=== PATIENT | female | born 1960 | race Caucasian/White ===

== ENCOUNTER 2016-09-10 17:56 | Emergency (ER) | payer BC ==
[~2016-09-10] VITALS: Ht 165.1 cm; Wt 61.1 kg
[~2016-09-10 17:56] MED LIST: LOSA25TA18 PO; METO25TA56 PO
[2016-09-10 18:02] VITALS: BP 189/105; PULSE 81; TEMP 36.5; O2SAT 99; Ht 165.1 cm; Wt 61.1 kg
[2016-09-10] MEDS ORDERED: XYLOCAINE 1%/SOD BICARB 20 ML VIAL INFIL ONE (18:30)
--- NOTE | 2016-09-10 19:02 | EMERGENCY ROOM VISIT NOTE ---
ED Visit Note First contact with patient: 18:05 CHIEF COMPLAINT: Hand laceration HISTORY OF PRESENT ILLNESS: This 56-year-old female patient presents to the emergency department ambulatory after cutting the left hand while trying to cut an off and caught her just prior to arrival. The bleeding has stopped. Denies weakness or numbness of the hand or fingers. The patient rates the pain as stinging and 7/10. The patient denies any other injuries. The patient's Tetanus shot is up to date. REVIEW OF SYSTEMS: A 6 system review of systems was completed with positives and pertinent negatives listed in the HPI. ALLERGIES: See EMR MEDICATIONS: See med list PMH: Hypertension SOCIAL HISTORY: The patient lives locally with family. PHYSICAL EXAM: Vital Signs: Reviewed Nurse's notes, vital signs stable. GENERAL : This is a 56-year-old female, in no acute distress, well-developed, well- nourished. SKIN: There is a 1 cm long laceration on the palmar aspect of the left hand. The edges gape apart with traction. There is no foreign material in the wound and it looks clean. There is no active bleeding. No deep structures such as tendons, bones, or significant blood vessels are seen in the base of the wound. Normal strength and movement of the fingers and wrist. Capillary refill less than 2 seconds. Normal sensation to light and sharp touch. EMERGENCY DEPARTMENT COURSE: I examined the patient. Verbal consent was obtained to perform the procedure. Using sterile technique the wound was cleansed with Betadine. The area was sterilely draped. 3 ml of 1% buffered lidocaine was used to anesthetize the laceration on the hand. Once the patient was anesthetized, the wound was copiously irrigated under pressure with sterile saline. The wound was explored and was as described above. The laceration was repaired using 3 simple interrupted 5-0 nylon sutures with the wound edges being well approximated. The patient tolerated the procedure well. Hemostasis was achieved. The area was cleaned with sterile saline and dressed with bacitracin ointment and bandage. The patient was discharged home in good condition. DIAGNOSIS: Hand laceration Problem List Medical Problems: (1) Anxiety Status: Chronic (2) HTN (hypertension) Status: Chronic Surgical Problems: (1) History of appendectomy Status: Resolved Current/Historical Medications Scheduled Loratadine (Claritin), 10 MG PO DAILY Montelukast Sod (Montelukast Sodium), 10 MG PO HS Multiple Vitamin (Multivitamin), 1 TAB PO DAILY Scheduled PRN Albuterol Sulfate (Proair Respiclick), 2 PUFFS INH UD PRN for Asthma Symptoms Allergies Coded Allergies: Fluconazole (Verified Allergy, Intermediate, Hives, 09/10/16) Nonoxynol 9 (Verified Allergy, Intermediate, Unknown, 09/10/16) BEE STING (Unverified Allergy, Unknown, anaphylaxis, 06/12/15) Latex (Unverified Allergy, Unknown, rash, 06/12/15) Lisinopril (Unverified Allergy, Unknown, cough, 06/12/15) Sulfa Antibiotics (Unverified Allergy, Unknown, hives, 06/12/15) Pneumococcal Vaccine (Verified Adverse Reaction, Intermediate, Body aches , 09/10/16) Vital Signs Date Time Temp Pulse Resp B/P Pulse Ox O2 Delivery O2 Flow Rate FiO2 09/10/16 18:02 36.5 81 18 189/105 99 Room Air Departure Information Impression Primary Impression: Hand laceration Dispostion Home / Self-Care Condition GOOD Referrals Franko Hardin M.D. (PCP) Patient Instructions My [facility] Additional Instructions You have received 3 sutures on your left hand. These sutures are NOT dissolvable and WILL need to be removed by a health care provider in 8-10 days. You can return to the Emergency Department or contact your Primary Care Provider to have the sutures removed. Proper wound care is essential for adequate wound healing and infection prevention. You can shower and clean the wound with soap and water. Do not scour over the wound, pat dry with a towel. Do not submerse the wound (i.e. bathe or dish wash) until the sutures have been removed. You can use an antibiotic ointment with a dressing over the wound for the next 3-4 days. After this time you may leave the wound dry and open to the air. If crust develops over the wound you can use a Q-tip to apply a 1:1 peroxide:water solution to clean the wound. Look for signs of infection of the wound including: increased pain, swelling, foul discharge, streaking, or increased temperature. If any of these are noticed you should return to the Emergency Department for further assessment and treatment. As with any laceration you may have received nerve damage to the surrounding tissues. This damage may or may not be permanent. You should keep the area covered with sunscreen for the first 6 months to 1 year when at risk for exposure to help minimize scarring. You can also use scar reducing creams or Vitamin E oil to help minimize scarring. For pain control, you can use the following [id number] medicines (if >12 yo): - Regular strength (325mg/tab) Tylenol (acetaminophen) 2 tabs every 4-6 hours as needed. Do not exceed 12 tablets in a 24 hour period. Avoid taking more than 4 grams (4000 mg) of Tylenol per day. This includes any other sources of acetaminophen you may take on a regular basis. - Regular strength (200 mg/tab) Advil (ibuprofen) 1-2 tabs every 4-6 hours as needed. Do not exceed a dose of 3200 mg per day. Return to the emergency department if your symptoms worsen despite treatment course outlined above. Problem Qualifiers Primary Impression: Hand laceration Encounter type: initial encounter Foreign body presence: without foreign body Laterality: left Qualified Codes: S61.412A - Laceration without foreign body of left hand, initial encounter
== END 2016-09-10 19:11 | disposition home or self-care (01) ==
LOC: C.EDB 17:57 → C.EDD 19:11
DX: S61.412A Laceration without foreign body of left hand, initial encounter (principal); W26.0XXA Contact with knife, initial encounter; I10 Essential (primary) hypertension; F41.9 Anxiety disorder, unspecified; Z79.899 Other long term (current) drug therapy

== ENCOUNTER 2016-09-20 15:31 | Emergency (ER) | payer BC ==
[~2016-09-20] VITALS: Ht 165.1 cm; Wt 60.6 kg
[2016-09-20 15:38] VITALS: TEMP 36.7; Ht 165.1 cm; Wt 60.6 kg
[2016-09-20] MEDS ORDERED: LORA-741 PO (15:54)
--- NOTE | 2016-09-20 16:11 | EMERGENCY ROOM VISIT NOTE ---
ED Visit Note First contact with patient: 15:52 CHIEF COMPLAINT: Hand laceration HISTORY OF PRESENT ILLNESS: This 56-year-old female patient presents to the emergency department approximately one hour after removing the sutures which were placed in her left palm 10 days ago. Patient states she has previously removed her own sutures out of her head, so thought removing her sutures from her hand would be without problem. Patient states she is now noticing a gaping opening of the wound, and this concerned that it will no longer heal properly. There has been no bleeding. Denies weakness or numbness of the hand or fingers. The patient rates the pain as stinging and 7/10. The patient denies any other injuries. The patient's Tetanus shot is up to date. REVIEW OF SYSTEMS: A 6 system review of systems was completed with positives and pertinent negatives listed in the HPI. ALLERGIES: Bee sting, lisinopril, fluconazole, latex, pneumococcal vaccine, sulfa MEDICATIONS: Singulair, multivitamin, albuterol, Claritin, lorazepam PMH: Seasonal allergies, asthma, anxiety SOCIAL HISTORY: Lives locally with her . She is an artist, and works with metal. Patient does admit to drinking alcohol regularly, admits to occasional marijuana use, but denies tobacco use. PHYSICAL EXAM: Vital Signs: Reviewed Nurse's notes, vital signs stable. GENERAL : 56-year-old female, in no acute distress, well-developed, well-nourished. SKIN: There is a 1 cm long laceration on the palmar aspect of the left hand. The edges slightly gape apart with traction. There is no foreign material in the wound and it looks clean. There is no active bleeding. No deep structures such as tendons, bones, or significant blood vessels are seen in the base of the wound. Normal strength and movement of the fingers and wrist. Capillary refill less than 2 seconds. Normal sensation to light and sharp touch. EMERGENCY DEPARTMENT COURSE: I examined the patient. Discussion with patient regarding proper wound care at this time. Too late to repeat sutures at this time, however I did offer to revise the wound for her and repeat stitches. Patient declines this. Patient would like to use [id number] liquid Band- Aid, and I feel that this is an appropriate treatment at this time. Discussion with patient regarding elevated blood pressure in the emergency department. She states she is very anxious, and does not like looking at her hand with wound. Patient states she does have history of elevated blood pressure with anxiety in the past and is being followed with her primary care provider regarding this. Patient was discharged home in good condition. DIAGNOSIS: Hand laceration, re-opening after removal of sutures; Elevated blood pressure without a diagnosis of HTN DIFFERENTIAL DIAGNOSIS: Abscess, cellulitis, HTN DISCHARGE INSTRUCTIONS & TREATMENT: For pain control: Ibuprofen(Motrin, Advil) may be used for fever or pain. Use 600mg every six hours as needed. Take with food. Avoid using more than 2400mg in a 24 hour period. Do not use 2400mg per day for more than three consecutive days without physician direction. Prolonged inappropriate use can lead to stomach upset or ulcers. (AND/OR) Acetaminophen(Tylenol) may be used for fever or pain. Use 1000mg every six hours as needed. Avoid using more than 4000mg in a 24 hour period. You may alternate these medications every 3-4 hours for pain relief. Keep the wound clean and dry. You may wash with soap and water, however, prevent scrubbing over the wound. Consider the use of a liquid Band-Aid for protection and to prevent bacteria from entering the wound. I advised against submersion the wound in water. I advised against getting the wound wet at a water park next week, unless the wound has closed and healed completely Follow-up with your primary care provider or in the emergency department for signs of infection including redness, swelling, fever, purulent drainage, body aches, chills. Follow-up with her primary care provider for recheck of blood pressure. It was significantly elevated in the emergency department today, however you reported often your blood pressure is elevated with increased anxiety. Continue to monitor this closely, and follow up in the emergency department for chest pain, dyspnea, headache, confusion, blurry vision, or if blood pressure continues to remain elevated throughout the day. Problem List Medical Problems: (1) Anxiety Status: Chronic (2) HTN (hypertension) Status: Chronic Surgical Problems: (1) History of appendectomy Status: Resolved Current/Historical Medications Scheduled Loratadine (Claritin), 10 MG PO DAILY Lorazepam (Ativan), 0.5 MG PO PRN UD Montelukast Sod (Montelukast Sodium), 10 MG PO HS Multiple Vitamin (Multivitamin), 1 TAB PO DAILY Scheduled PRN Albuterol Sulfate (Proair Respiclick), 2 PUFFS INH UD PRN for Asthma Symptoms Allergies Coded Allergies: Fluconazole (Verified Allergy, Intermediate, Hives, 09/10/16) Nonoxynol 9 (Verified Allergy, Intermediate, Unknown, 09/10/16) BEE STING (Unverified Allergy, Unknown, anaphylaxis, 06/12/15) Latex (Unverified Allergy, Unknown, rash, 06/12/15) Lisinopril (Unverified Allergy, Unknown, cough, 06/12/15) Sulfa Antibiotics (Unverified Allergy, Unknown, hives, 06/12/15) Pneumococcal Vaccine (Verified Adverse Reaction, Intermediate, Body aches , 09/10/16) Vital Signs Date Time Temp Pulse Resp B/P (MAP) Pulse Ox O2 Delivery O2 Flow Rate FiO2 09/20/16 16:42 75 18 182/101 99 09/20/16 16:14 70 18 174/102 99 Room Air 09/20/16 15:38 36.7 75 18 204/121 98 Room Air Departure Information Impression Primary Impression: Encounter for wound re-check Additional Impressions: Hand laceration Elevated blood pressure reading without diagnosis of hypertension Dispostion Home / Self-Care Condition GOOD Referrals Franko Hardin M.D. (PCP) Patient Instructions My [facility] Additional Instructions For pain control: Ibuprofen(Motrin, Advil) may be used for fever or pain. Use 600mg every six hours as needed. Take with food. Avoid using more than 2400mg in a 24 hour period. Do not use 2400mg per day for more than three consecutive days without physician direction. Prolonged inappropriate use can lead to stomach upset or ulcers. (AND/OR) Acetaminophen(Tylenol) may be used for fever or pain. Use 1000mg every six hours as needed. Avoid using more than 4000mg in a 24 hour period. You may alternate these medications every 3-4 hours for pain relief. Keep the wound clean and dry. You may wash with soap and water, however, prevent scrubbing over the wound. Consider the use of a liquid Band-Aid for protection and to prevent bacteria from entering the wound. I advised against submersion the wound in water. I advised against getting the wound wet at a water park next week, unless the wound has closed and healed completely Follow-up with your primary care provider or in the emergency department for signs of infection including redness, swelling, fever, purulent drainage, body aches, chills. Follow-up with her primary care provider for recheck of blood pressure. It was significantly elevated in the emergency department today, however you reported often your blood pressure is elevated with increased anxiety. Continue to monitor this closely, and follow up in the emergency department for chest pain, dyspnea, headache, confusion, blurry vision, or if blood pressure continues to remain elevated throughout the day. Problem Qualifiers Additional Impressions: Hand laceration Encounter type: subsequent encounter Foreign body presence: without foreign body Laterality: left Qualified Codes: S61.412D - Laceration without foreign body of left hand, subsequent encounter
[2016-09-20 16:42] VITALS: BP 182/101; PULSE 75; O2SAT 99
[2016-09-20] MEDS ORDERED: SNG10 PO (18:36)
[2016-09-20] MEDS ORDERED: CLR10 PO (18:36)
[2016-09-20] MEDS ORDERED: MULTTAB58 PO (18:36)
[2016-09-20] MEDS ORDERED: ALBU18002 INH (18:36)
== END 2016-09-20 16:43 | disposition home or self-care (01) ==
LOC: C.EDB 15:32 → C.EDD 16:43
DX: T81.30XA Disruption of wound, unspecified, initial encounter (principal); S61.412A Laceration without foreign body of left hand, initial encounter; X58.XXXA Exposure to other specified factors, initial encounter; R03.0 Elevated blood-pressure reading, without diagnosis of hypertension; I10 Essential (primary) hypertension; F41.9 Anxiety disorder, unspecified; Z98.890 Other specified postprocedural states; Z88.2 Allergy status to sulfonamides; Z88.8 Allergy status to other drugs, medicaments and biological substances; Z91.040 Latex allergy status; Z91.030 Bee allergy status

== ENCOUNTER → 2016-11-29 | Outpatient (CLI) | payer BC ==
[~2016-11-29] MED LIST changes: +ALBU18002 INH; +CLR10 PO; +LORA-741 PO; -LOSA25TA18 PO; -METO25TA56 PO; +MULTTAB58 PO; +SNG10 PO
--- NOTE | 2016-11-29 14:05 | MAMMOGRAPHY REPORT ---
BILATERAL FIRST EVER DIGITAL SCREENING MAMMOGRAM TOMOSYNTHESIS WITH CAD: 11/29/2016 CLINICAL HISTORY: Routine screening. Baseline exam. TECHNIQUE: Breast tomosynthesis in addition to standard 2D mammography was performed. Current study was also evaluated with a Computer Aided Detection (CAD) system. COMPARISON: No prior exams were available for comparison. BREAST COMPOSITION: The tissue of both breasts is heterogeneously dense, which may obscure small mas ses. FINDINGS: No suspicious masses, calcifications, or areas of architectural distortion are noted in ei ther breast. IMPRESSION: ACR BI-RADS CATEGORY 1: NEGATIVE There is no mammographic evidence of malignancy. A 1 year screening mammogram is recommended. The pa tient will receive written notification of the results. Approximately 10% of breast cancers are not detected with mammography. A negative mammographic report should not delay biopsy if a clinically suggestive mass is present. Shefali Oshea M.D. ah/:11/29/2016 07:51:03 Body Technician/Painter: Gurjit GUALLPA)(Ingrid), [facility] letter sent: Normal 1/2 BI-RADS Code: ACR BI-RADS Category 1: Negative
== END | disposition home or self-care (01) ==
LOC: C.MAMM 07:20
PROVIDERS: ATTEND Family Medicine
DX: Z12.31 Encounter for screening mammogram for malignant neoplasm of breast (principal)

== ENCOUNTER 2017-05-27 18:37 | Emergency (ER) | payer BC, OTHER ==
[~2017-05-27] VITALS: Ht 165.1 cm; Wt 60.5 kg
[2017-05-27 18:46] VITALS: Ht 165.1 cm; Wt 60.5 kg
[2017-05-27] MEDS ORDERED: SODIUM CHLORIDE 0.9% 500ML 500 ML IV STA (19:56)
[2017-05-27] MEDS ORDERED: OPTIRAY 320 IV PRN (20:00)
--- NOTE | 2017-05-27 20:14 | EMERGENCY ROOM VISIT NOTE ---
History Report prepared by Francis: Bashir Chavez Under the Supervision of: Dr. Linda Menjivar D.O. First contact with patient: 19:27 Chief Complaint: CHEST PAIN Stated Complaint: CHEST PAIN Nursing Triage Summary: while seated pt developed chest pain at 1700hours legs became weak now both arms are tingling pt took a bp pill and ativan with some relief of chest pain denies short of breath nausea History of Present Illness The patient is a 56 year old female who presents to the Emergency Room with complaints of intermittent chest tightness beginning a few hours ago. The patient states she has been experiencing vision changes intermittently all week and a depressed affect for the past three days. She reports she developed chest pain about three hours ago and thought it was her anxiety. The patient notes she took her blood pressure, and it was 163/107. She states she takes blood pressure medication when she feels her blood pressure rising, but she ran out of her current medication, so she took a two year old Losartan. The patient reports her walking became unsteady, and she developed a headache. She states she then took a Lorazepam because the blood pressure medication did not work. She notes she typically does not get headaches. The patient states her unsteadiness then spread to her elbows. She reports she had a sip of her 's yesy, and she was not able to eat anything. The patient notes she has a history of anxiety and asthma, and she has not had an event like this in two years. She states it does not feel like an asthma attack because she experienced tightness. The patient reports her episodes started after her mother , and she had to take care of her sister. 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 The patient states she had a normal stress test a few years ago, and she started taking her daily vitamins and Claritin a few days ago. She denies her pain radiating to her arms, a history of an NV or heart disease, trouble urinating, trouble moving her bowels, and a history of smoking. The patient notes her blood pressure is in the 140s when stressed and 127 without stress. Patient states currently feels improved and believe that the medication she took at home with for her anxiety and blood pressure have elevated her symptoms. Source of History: patient Onset: a few hours ago Position: chest Quality: other (tightness) Timing: intermittent Associated Symptoms: + headache, + back pain (upper) Note: Associated symptoms: vision changes, depressed affect, high blood pressure, unsteadiness to her legs and elbow Denies: pain radiating to her arms, trouble urinating, trouble moving her bowels Review of Systems See HPI for pertinent positives & negatives. A total of 10 systems reviewed and were otherwise negative. Past Medical & Surgical Medical Problems: (1) Anxiety (2) Asthma (3) HTN (hypertension) Surgical Problems: (1) History of appendectomy Family History FHx: cancer Heart disease Hypertension Lung disease Social History Smoking Status: Never Smoker Smokeless Tobacco Use: No Alcohol Use: occasionally Marital Status: Housing Status: lives with significant other Occupation Status: employed Current/Historical Medications Scheduled Loratadine (Claritin), 10 MG PO DAILY Lorazepam (Ativan), 0.5 MG PO PRN UD Losartan Potassium (Cozaar), 25 MG PO DAILY Montelukast Sod (Montelukast Sodium), 10 MG PO HS Multiple Vitamin (Multivitamin), 1 TAB PO DAILY Probiotic Product (Probiotic), 1 TAB PO DAILY Scheduled PRN Albuterol Sulfate (Proair Respiclick), 2 PUFFS INH UD PRN for Asthma Symptoms Allergies Coded Allergies: Fluconazole (Verified Allergy, Intermediate, Hives, 05/27/17) Nonoxynol 9 (Verified Allergy, Intermediate, Unknown, 05/27/17) BEE STING (Unverified Allergy, Unknown, anaphylaxis, 05/27/17) Latex (Unverified Allergy, Unknown, rash, 05/27/17) Lisinopril (Unverified Allergy, Unknown, cough, 05/27/17) Sulfa Antibiotics (Unverified Allergy, Unknown, hives, 05/27/17) Pneumococcal Vaccine (Verified Adverse Reaction, Intermediate, Body aches , 05/27/17) Physical Exam Vital Signs Date Time Temp Pulse Resp B/P (MAP) Pulse Ox O2 Delivery O2 Flow Rate FiO2 05/27/17 21:19 36.7 73 18 161/91 98 Room Air 05/27/17 18:46 36.7 68 20 209/105 99 Room Air Physical Exam GENERAL: alert, well appearing, well nourished, no distress, non-toxic EYE EXAM: normal conjunctiva, PERRL and EOM's grossly intact OROPHARYNX: no exudate, no erythema, lips, buccal mucosa, and tongue normal and mucous membranes are moist NECK: supple, no nuchal rigidity, no adenopathy, non-tender LUNGS: Clear to auscultation. Normal chest wall mechanics. No wheezes, rhonchi, or rales. HEART: no murmurs, S1 normal and S2 normal CHEST: No reproducible chest wall tenderness upon palpation. ABDOMEN: abdomen soft, non-tender, normo-active bowel sounds, no masses, no rebound or guarding. BACK: Back is symmetrical on inspection and there is no deformity, no midline tenderness, no CVA tenderness. SKIN: no rashes and no bruising UPPER EXTREMITIES: upper extremities are grossly normal. LOWER EXTREMITIES: No pitting edema. NEURO EXAM: Normal sensorium, cranial nerves II-XII intact, normal speech, no weakness of arms, no weakness of legs, no ataxia, no facial droop, inability with a steady gait. Medical Decision & Procedures ER Provider Diagnostic Interpretation: Radiology results have been interpreted by the radiologist and reviewed by me. ANGIOGRAPHY HEAD COMBO CLINICAL HISTORY: 56 years-old Female presents with acute headache COMPARISON STUDY: CT head 07/01/2015 TECHNIQUE: Unenhanced axial CT scan of the brain is performed. Subsequently, following the IV administration of 88 cc of Optiray 320, CT angiogram of the brain was performed from the skull base to the vertex. Images are reviewed in the axial, sagittal, and coronal planes. 3-D MIPS images are created and assessed. IV contrast was administered without complication. A dose lowering technique was utilized adhering to the principles of ALARA. CT DOSE: 635.40 mGy.cm FINDINGS: CT BRAIN: There is no acute intracranial hemorrhage, midline shift, hydrocephalus, intracranial mass, territorial ischemia or abnormal extra-axial collections. No abnormal intra-axial or extra-axial enhancement. Senescent calcifications of the lentiform nuclei. Mastoid air cells and middle ear cavities are clear. No calvarial fracture. Paranasal sinuses are clear. Note is made of a metopic suture. CT ANGIOGRAM OF THE BRAIN: The imaged bilateral internal carotid arteries are patent. Mild atherosclerotic plaquing involves the clinoid portions of the internal carotid arteries bilaterally. The bilateral anterior and middle cerebral arteries are also patent. The vertebrobasilar system and posterior cerebral arteries are widely patent. There is no aneurysm, high-grade stenosis, or proximal branch occlusion identified. Dural sinuses appear patent. IMPRESSION: 1. No acute intracranial abnormality identified. 2. Unremarkable CTA of the head without aneurysm, dissection, high-grade stenosis or proximal branch occlusion. The above report was generated using voice recognition software. It may contain grammatical, syntax or spelling errors. Electronically signed by: Lux Estrella M.D. 05/27/2017 9:41 PM Dictated Date/Time: 05/27/2017 9:35 PM CHEST ONE VIEW PORTABLE HISTORY: 56 years-old Female chest pain acute atypical chest pain COMPARISON: Chest radiograph 11/11/2015 TECHNIQUE: Portable AP view of the chest FINDINGS: Cardiomediastinal and hilar silhouettes are within normal limits. No pneumothorax, pleural effusion, focal airspace consolidation or overt pulmonary edema. Bones of the chest appear grossly intact. IMPRESSION: No acute process. The above report was generated using voice recognition software. It may contain grammatical, syntax or spelling errors. Electronically signed by: Lux Estrella M.D. 05/27/2017 8:39 PM Dictated Date/Time: 05/27/2017 8:39 PM Laboratory Results 05/27/17 20:10 Red Blood Count 4.36, Mean Corpuscular Volume 89.7, Mean Corpuscular Hemoglobin 31.4, Mean Corpuscular Hemoglobin Concent 35.0, Mean Platelet Volume 9.2, Neutrophils (%) (Auto) 51.7, Lymphocytes (%) (Auto) 38.7, Monocytes (%) (Auto) 7.0, Eosinophils (%) (Auto) 2.0, Basophils (%) (Auto) 0.3, Neutrophils # (Auto) 3.38, Lymphocytes # (Auto) 2.53, Monocytes # (Auto) 0.46, Eosinophils # (Auto) 0.13, Basophils # (Auto) 0.02 05/27/17 20:10 Test 05/27/17 20:10 White Blood Count 6.54 K/uL (4.8-10.8) Red Blood Count 4.36 M/uL (4.2-5.4) Hemoglobin 13.7 g/dL (12.0-16.0) Hematocrit 39.1 % (37-47) Mean Corpuscular Volume 89.7 fL (80-100) Mean Corpuscular Hemoglobin 31.4 pg (25-34) Mean Corpuscular Hemoglobin Concent 35.0 g/dl (32-36) Platelet Count 191 K/uL (130-400) Mean Platelet Volume 9.2 fL (7.4-10.4) Neutrophils (%) (Auto) 51.7 % Lymphocytes (%) (Auto) 38.7 % Monocytes (%) (Auto) 7.0 % Eosinophils (%) (Auto) 2.0 % Basophils (%) (Auto) 0.3 % Neutrophils # (Auto) 3.38 K/uL (1.4-6.5) Lymphocytes # (Auto) 2.53 K/uL (1.2-3.4) Monocytes # (Auto) 0.46 K/uL (0.11-0.59) Eosinophils # (Auto) 0.13 K/uL (0-0.5) Basophils # (Auto) 0.02 K/uL (0-0.2) RDW Standard Deviation 42.3 fL (36.4-46.3) RDW Coefficient of Variation 13.0 % (11.5-14.5) Immature Granulocyte % (Auto) 0.3 % Immature Granulocyte # (Auto) 0.02 K/uL (0.00-0.02) Prothrombin Time 10.6 SECONDS (9.0-12.0) Prothromb Time International Ratio 1.0 (0.9-1.1) Anion Gap 10.0 mmol/L (3-11) Est Creatinine Clear Calc Drug Dose 68.1 ml/min Estimated GFR () 90.0 Estimated GFR (Non- 77.7 BUN/Creatinine Ratio 14.2 (10-20) Calcium Level 9.6 mg/dl (8.5-10.1) Magnesium Level 2.1 mg/dl (1.8-2.4) Total Bilirubin 0.4 mg/dl (0.2-1) Aspartate Amino Transf (AST/SGOT) 30 U/L (15-37) Alanine Aminotransferase (ALT/SGPT) 27 U/L (12-78) Alkaline Phosphatase 64 U/L (45-117) Troponin I < 0.015 ng/ml (0-0.045) Total Protein 8.8 gm/dl (6.4-8.2) Albumin 4.0 gm/dl (3.4-5.0) Globulin 4.8 gm/dl (2.5-4.0) Albumin/Globulin Ratio 0.8 (0.9-2) Thyroid Stimulating Hormone (TSH) 9.090 uIu/ml (0.300-4.500) Human Chorionic Gonadotropin, Qual NEG (NEG) Lyme Disease IgG Antibody NEG (NEG) Lyme Disease IgM Antibody NEG (NEG) Laboratory results per my review. Medications Administered Medications (Trade) Dose Ordered Sig/Blanca Route Start Time Stop Time Status Last Admin Dose Admin Sodium Chloride 500 ml @ 999 mls/hr Q31M STAT IV 05/27/17 19:56 05/27/17 20:26 DC 05/27/17 19:56 999 MLS/HR ECG Indication: chest pain Rate (beats per minute): 66 Rhythm: sinus rhythm Findings: no acute ischemic change, no ectopy, other (Normal axis. Normal intervals. Low voltage.) Comparison ECG Date: no prior available Change: EKG: Patient's electrocardiogram per my interpretation. ED Course 1939: The patient was evaluated in room C05. A complete history and physical exam was performed. 1955: Ordered Sodium Chloride 500 ml @ 999 mls/hr IV 2150: Upon reevaluation, the patient is feeling better. Her blood pressure improved, and she is ready to go home. I discussed the findings and the treatment plan with the patient. She verbalizes agreement and understanding. 2217: The patient was discharged home. Medical Decision Differential diagnoses includes but is not limited to acute coronary syndrome, myocardial infarction, pericarditis, pulmonary embolus, aortic dissection, pneumonia, pneumothorax, musculoskeletal, shingles, esophageal. Patient well-appearing here despite complaints, no focal neural deficits. Troponin negative after greater than 6 hours of symptoms. Patient's symptoms resolved with her treatments at home prior to arrival. Discussed with her recheck of her blood pressure and possibility of underlying essential hypertension as there is family history of such. Likely patient's anxiety does contribute to her hypertension. Hypertension improved in the emergency room without any additional medications being needed, no evidence of hypertensive urgency/emergency. Patient's heart score 2 and I feel patient very low risk. No symptoms to suggest CVA, increased ICP, or other [employer] pathology. Doubt occult infectious etiology. Doubt dissection, no other risk factors for vascular disease. Patient monitored here no dysrhythmias noted on telemetry. Discussed with patient follow-up with family doctor, periodic use of anxiolytics , adequate hydration and avoidance of excessive salt in diet given blood pressure readings. Discussed with patient symptoms to watch and return for, she verbalized understanding was agreeable with plan. Patient advised she should have her family doctor recheck her thyroid number as it was slightly abnormal here. Patient with no evidence of thyroid storm. Medication Reconcilliation Current Medication List: was personally reviewed by me Blood Pressure Screening Patient's blood pressure: Elevated blood pressure Blood pressure disposition: Referred to PCP Impression Primary Impression: Chest pain Additional Impressions: Headache Anxiety Hypertension Abnormal TSH Scribe Attestation The scribe's documentation has been prepared under my direction and personally reviewed by me in its entirety. I confirm that the note above accurately reflects all work, treatment, procedures, and medical decision making performed by me. Departure Information Dispostion Home / Self-Care Referrals Franko Hardin M.D. (PCP) Forms Call Back Authorization, HOME CARE DOCUMENTATION FORM, IMPORTANT VISIT INFORMATION Patient Instructions ED Chest Pain Atypical Unkn Cause, Headaches Self Care, Hypertension Dc, [facility] Additional Instructions Please follow up with your family doctor to recheck your blood pressure as well as recheck additional thyroid numbers. Your TSH here was slightly abnormal at 9. Please make sure you're drinking enough water, and avoid any additional salt in your diet as that can contribute to high blood pressure. Given your family history, if your blood pressure is persistently high, your family doctor may decide to start you on a blood pressure medication on a daily basis. If you develop any recurrent chest pain or pressure, develop trouble breathing, dizziness, headaches, numbness or tingling, feels though you're going to pass out, trouble speaking, trouble walking, or you've any other new concerns, please return the emergency room. Problem Qualifiers Primary Impression: Chest pain Chest pain type: unspecified Qualified Codes: R07.9 - Chest pain, unspecified Additional Impressions: Headache Headache type: unspecified Headache chronicity pattern: unspecified pattern Intractability: not intractable Qualified Codes: R51 - Headache Hypertension Hypertension type: unspecified Qualified Codes: I10 - Essential (primary) hypertension
[2017-05-27 20:23] LABS: BASO % 0.3 %; BASO ABS # 0.02 K/uL (0-0.2); EOS ABS # 0.13 K/uL (0-0.5); HEMATOCRIT 39.1 % (37-47); HEMOGLOBIN 13.7 g/dL (12.0-16.0); IG# 0.02 K/uL (0.00-0.02); LYMPH % 38.7 %; LYMPH ABS # 2.53 K/uL (1.2-3.4); MEAN CELL VOLUME 89.7 fL (80-100); MEAN CORPUSCULAR HEMOGLOBIN 31.4 pg (25-34); MEAN PLATELET VOLUME 9.2 fL (7.4-10.4); MONO ABS # 0.46 K/uL (0.11-0.59); NEUT % 51.7 %; NEUT ABS # 3.38 K/uL (1.4-6.5); PLATELET COUNT 191 K/uL (130-400); RED CELL DISTRIBUTION WIDTH SD 42.3 fL (36.4-46.3); WHITE BLOOD COUNT 6.54 K/uL (4.8-10.8)
[2017-05-27 20:39] LABS: ALT/SGPT 27 U/L (12-78); AST/SGOT 30 U/L (15-37); BLOOD UREA NITROGEN 12 mg/dl (7-18); CALCIUM 9.6 mg/dl (8.5-10.1); CARBON DIOXIDE 26 mmol/L (21-32); CREATININE 0.85 mg/dl (0.60-1.20); GLUCOSE 88 mg/dl (70-99); POTASSIUM 3.7 mmol/L (3.5-5.1); SODIUM 130 mmol/L (136-145)
--- NOTE | 2017-05-27 20:41 | DIAGNOSTIC IMAGING REPORT ---
CHEST ONE VIEW PORTABLE HISTORY: 56 years-old Female chest pain acute atypical chest pain COMPARISON: Chest radiograph 11/11/2015 TECHNIQUE: Portable AP view of the chest FINDINGS: Cardiomediastinal and hilar silhouettes are within normal limits. No pneumothorax, pleural effusion, focal airspace consolidation or overt pulmonary edema. Bones of the chest appear grossly intact. IMPRESSION: No acute process. The above report was generated using voice recognition software. It may contain grammatical, syntax or spelling errors. Electronically signed by: Lux Estrella M.D. 05/27/2017 8:39 PM Dictated Date/Time: 05/27/2017 8:39 PM
[2017-05-27 20:50] LABS: ALKALINE PHOSPHATASE 64 U/L (45-117); TOTAL PROTEIN 8.8 gm/dl (6.4-8.2)
[2017-05-27] MEDS ORDERED: LOSA1TAB PO (21:00)
[2017-05-27] MEDS ORDERED: PROB1TAB16 PO (21:02)
[2017-05-27 21:19] VITALS: BP 161/91; PULSE 73; TEMP 36.7; O2SAT 98
--- NOTE | 2017-05-27 21:42 | DIAGNOSTIC IMAGING REPORT ---
ANGIOGRAPHY HEAD COMBO CLINICAL HISTORY: 56 years-old Female presents with acute headache COMPARISON STUDY: CT head 07/01/2015 TECHNIQUE: Unenhanced axial CT scan of the brain is performed. Subsequently, following the IV administration of 88 cc of Optiray 320, CT angiogram of the brain was performed from the skull base to the vertex. Images are reviewed in the axial, sagittal, and coronal planes. 3-D MIPS images are created and assessed. IV contrast was administered without complication. A dose lowering technique was utilized adhering to the principles of ALARA. CT DOSE: 635.40 mGy.cm FINDINGS: CT BRAIN: There is no acute intracranial hemorrhage, midline shift, hydrocephalus, intracranial mass, territorial ischemia or abnormal extra-axial collections. No abnormal intra-axial or extra-axial enhancement. Senescent calcifications of the lentiform nuclei. Mastoid air cells and middle ear cavities are clear. No calvarial fracture. Paranasal sinuses are clear. Note is made of a metopic suture. CT ANGIOGRAM OF THE BRAIN: The imaged bilateral internal carotid arteries are patent. Mild atherosclerotic plaquing involves the clinoid portions of the internal carotid arteries bilaterally. The bilateral anterior and middle cerebral arteries are also patent. The vertebrobasilar system and posterior cerebral arteries are widely patent. There is no aneurysm, high-grade stenosis, or proximal branch occlusion identified. Dural sinuses appear patent. IMPRESSION: 1. No acute intracranial abnormality identified. 2. Unremarkable CTA of the head without aneurysm, dissection, high-grade stenosis or proximal branch occlusion. The above report was generated using voice recognition software. It may contain grammatical, syntax or spelling errors. Electronically signed by: Lux Estrella M.D. 05/27/2017 9:41 PM Dictated Date/Time: 05/27/2017 9:35 PM
== END 2017-05-27 22:24 | disposition home or self-care (01) ==
LOC: C.EDB 18:38 → C.EDC 22:24
DX: R07.9 Chest pain, unspecified (principal); R51 Headache; I10 Essential (primary) hypertension; F41.9 Anxiety disorder, unspecified; R94.6 Abnormal results of thyroid function studies; Z79.899 Other long term (current) drug therapy; Z91.030 Bee allergy status; Z88.8 Allergy status to other drugs, medicaments and biological substances

== ENCOUNTER → 2017-07-25 | Outpatient (CLI) | payer OTHER ==
[~2017-07-25] MED LIST changes: +LOSA1TAB PO; +PROB1TAB16 PO
--- NOTE | 2017-07-25 08:55 | DIAGNOSTIC IMAGING REPORT ---
ULTRASOUND OF THE PELVIS CLINICAL HISTORY: Vaginal bleeding. COMPARISON STUDY: No priors. TECHNIQUE: Real-time, grayscale, and color flow sonography of the pelvis is performed both transabdominally and endovaginally. Images are reviewed in the transverse and longitudinal planes. FINDINGS: Uterus: The uterus is normal in size and mildly heterogeneous in echotexture, measuring 8.4 x 4.1 x 4.6 cm. Small intramural fibroids measure up to 1.7 cm. Nabothian cysts are noted in the cervix. Endometrium: The endometrium is normal in appearance, and the endometrial stripe is normal in thickness measuring up to 0.8 cm. Ovaries: The right ovary was not visualized. The left ovary is normal in appearance and measures 1.9 x 1.8 x 1.5 cm. Normal Doppler waveforms are shown within the left ovary. Pelvis: There is no free fluid in the cul-de-sac. No concerning adnexal lesion is seen. IMPRESSION: 1. Small uterine fibroids are identified. 2. The endometrial stripe measures up to 8 mm in thickness. 3. The left ovary is normal in appearance. 4. The right ovary was not visualized. Electronically signed by: Danilo Salomon M.D. 07/25/2017 8:54 AM Dictated Date/Time: 07/25/2017 8:52 AM
== END | disposition home or self-care (01) ==
LOC: C.ULTR 07:46
PROVIDERS: ATTEND Family Medicine
DX: N93.9 Abnormal uterine and vaginal bleeding, unspecified (principal)

== ENCOUNTER → 2017-07-25 | Outpatient (CLI) | payer OTHER | END | disposition home or self-care (01) | LOC: C.PATHSPEC 17:52 | PROVIDERS: ATTEND Obstetrics & Gynecology | DX: N93.8 Other specified abnormal uterine and vaginal bleeding (principal) ==

== ENCOUNTER 2020-09-26 15:02 | Inpatient (IN) ==
--- NOTE | 2020-09-26 16:07 | Emergency Department Note ---
Impression & Plan Atypical chest pain, Alcohol abuse ED Provider Note NAME: OFELIA PAIGE AGE: 60 SEX: F : 1960 ARRIVES VIA: Walk-In INFORMANT: Patient, ED PROVIDER(S): Gilles Louis MD Chief Complaint: Chest pain HPI: Patient does present with concern for chest pain. Patient describes it as a left-sided pressure like feeling like it was "three 5 pound bags of sugar on her chest." The patient states that this occurred while scrubbing the kitchen today. The patient denies any nausea or vomiting. Patient does have a history of alcohol use approximately 6 pack a day for 20 years on and off. Patient does have family history of heart attack in father in early 60s. Patient denies shortness of breath. She has had mild cough. The patient patient is vaccinated for Covid. 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 Patient denies any fevers or chills. Patient denies lower extremity swelling history of DVT or PE. The patient is no history of surgeries or procedures ROS: See HPI for pertinent positives and negatives. A total of 10 systems were reviewed and otherwise negative. Past medical history: See below Surgical history: See below Social history: See below Physical Exam: GENERAL: Wearing glasses and a mask NAD, non-toxic. EYE EXAM: Normal conjunctiva. PERRL, no anisocoria and EOM's grossly intact w/o pain. NECK: Supple, no nuchal rigidity, no adenopathy, non-tender. No signs of meningismus. LUNGS: Clear to auscultation. Normal chest wall mechanics. HEART: NSR, no MRG. ABDOMEN: Abdomen soft, non-tender, normo-active bowel sounds, no masses, no rebound or guarding. BACK: No CVA TTP. SKIN: No rashes and no bruising. UPPER EXTREMITIES: Upper extremities are grossly normal. LOWER EXTREMITIES: Grossly normal, no edema. Negative Homans' sign bilaterally. NEURO EXAM: A&O x3, cranial nerves II-XII grossly intact, normal speech, moves all 4 extremities on command w/o issue. Differential diagnoses: Cardiac ischemia, aortic dissection, pulmonary embolism, pneumothorax, pneumonia, pericarditis, myocarditis, esophageal rupture, GERD, cholecystitis, pancreatitis, musculoskeletal, as well as other pathologies. Course: Patient was seen and evaluated the bedside. Full history physical exam was performed. EKG interpreted by me Normal sinus rhythm, rate of 75, prolonged QT, normal axis, no ST changes or T WI. Imaging Studies: See below Cardiac monitoring: An order was placed for continuous cardiac monitoring. The monitor shows a rate of 66 with sinus rhythm. MDM: Patient was seen due to concern for chest pain. Patient does have concerning features with regard to the patient's story as well as family history. The patient does have numerous risk factors and the patient is an alcoholic. After further discussion with the patient the patient did have improvement in symptoms. Patient's blood work is grossly unremarkable with an unremarkable EKG chest x-ray is clear. Patient does have moderate risk heart score greater than 4. After further discussion with the patient patient did have improvement with aspirin and nitro. Patient was also given some Ativan given the patient's chronic alcohol use. Patient is amenable for further testing and treatment. I did speak with the on-call hospitalist and the patient was admitted by Dr. Era gilman. Past Med/Surg History Medical History Anxiety Asthma Dry cough D/T EMPLOYMENT EXPOSURES PER PT - DENIES CHANGE IN QUALITY AND DENIES ANY OTEHR ILLNESS SYMPTOMS Frequent UTI HX OF - MOST RECENT FEW YRS AGO History of skin cancer HX PRE CANCER ON NOSE / REMOVED Hypertension Hypothyroid Prediabetes Surgical History H/O colonoscopy H/O dilation and curettage 2020, pmb, polyp H/O hand surgery H/O oral surgery S/P appendectomy HX Family History Sister Breast cancer Mother Hypertension Father Dyslipidemia Hypertension Brother Multiple sclerosis Other Family history of diabetes mellitus Ovarian cancer Denies family history of Colorectal cancer Social History Smoking Status: Never smoker Hx Alcohol Use: Yes Alcohol type: beer Preferred Language: Kiswahili Communication Ability: Effective Sole Skiver Required: No Beliefs That Will Affect Care: None Current Living Situation: Spouse Feels Safe at Home: Yes Assistive Devices: Contacts and Glasses Allergies Allergies Allergy/AdvReac Type Severity Reaction Status Date / Time bee venom protein (honey bee) Allergy Severe anaphylaxis Verified 09/26/20 17:18 fluconazole Allergy Intermediate Hives Verified 09/26/20 17:18 latex Allergy Intermediate rash/SWELLI Verified 09/26/20 17:18 NG nonoxynol 9 Allergy Intermediate SWELLING, Verified 09/26/20 17:18 ITCHING AND DISCOMFORT Sulfa (Sulfonamide Allergy Intermediate hives Verified 09/26/20 17:18 Antibiotics) egg AdvReac Intermediate UNDERCOOKED Verified 09/26/20 17:18 EGGS - DIARRHEA lisinopril AdvReac Intermediate cough Verified 09/26/20 17:18 pneumococcal vaccine AdvReac Intermediate Body Verified 09/26/20 17:18 aches, LEGS DIDN'T WORK WINE AdvReac Intermediate WHEN DRINK Uncoded 09/26/20 17:18 WINE SPINE HURTS FROM TOP TO BOTTOM Home Meds Home Medications Medication Instructions Recorded Confirmed albuterol sulfate 1 - 2 puff INHALATION UD PRN 03/07/20 09/26/20 levothyroxine 50 mcg PO QAM 03/07/20 09/26/20 montelukast 10 mg PO QPM 03/07/20 09/26/20 telmisartan 40 mg PO BID 03/07/20 09/26/20 Results & Data (ED) Vital Signs Vital Signs - 24 hr 09/26/20 15:07 09/26/20 16:16 09/26/20 16:18 Temperature 36.7 C Temperature Source Skin Pulse Rate 76 80 73 Pulse Rate [Left Radial] Pulse Rate from SpO2 Sensor 77 74 Pulse Rhythm [Left Radial] Pulse Strength [Left Radial] Respiratory Rate 20 22 19 Respiratory Effort / Characteristics Non-Labored Respiratory Depth Normal Respiratory Pattern Blood Pressure 177/95 H 187/112 H Blood Pressure [Left Arm] Blood Pressure Mean 122 137 Blood Pressure Mean [Left Arm] Blood Pressure Position [Left Arm] Pulse Oximetry 99 100 99 Oxygen Delivery Method Room Air Sepsis Recent Fever Within 48 Hours No Sepsis New/Unexplained Change in Mental Status N/A Sepsis Action Taken by Nursing No Action Required 09/26/20 16:27 09/26/20 16:30 09/26/20 17:00 Temperature Temperature Source Pulse Rate 66 73 Pulse Rate [Left Radial] 73 Pulse Rate from SpO2 Sensor 68 72 Pulse Rhythm [Left Radial] Regular Pulse Strength [Left Radial] Normal Respiratory Rate 22 18 17 Respiratory Effort / Characteristics Non-Labored Spontaneous Respiratory Depth Normal Respiratory Pattern Regular Blood Pressure 180/105 H 191/119 H Blood Pressure [Left Arm] 187/112 H Blood Pressure Mean 130 143 Blood Pressure Mean [Left Arm] 137 Blood Pressure Position [Left Arm] Lying Pulse Oximetry 100 99 99 Oxygen Delivery Method Room Air Sepsis Recent Fever Within 48 Hours Sepsis New/Unexplained Change in Mental Status Sepsis Action Taken by Nursing 09/26/20 17:30 09/26/20 18:00 09/26/20 18:01 Temperature Temperature Source Pulse Rate 77 78 80 Pulse Rate [Left Radial] Pulse Rate from SpO2 Sensor 77 81 80 Pulse Rhythm [Left Radial] Pulse Strength [Left Radial] Respiratory Rate 20 18 19 Respiratory Effort / Characteristics Respiratory Depth Respiratory Pattern Blood Pressure 163/117 H 142/91 H Blood Pressure [Left Arm] Blood Pressure Mean 132 108 Blood Pressure Mean [Left Arm] Blood Pressure Position [Left Arm] Pulse Oximetry 100 98 98 Oxygen Delivery Method Sepsis Recent Fever Within 48 Hours Sepsis New/Unexplained Change in Mental Status Sepsis Action Taken by Nursing 09/26/20 18:02 09/26/20 18:30 09/26/20 18:31 Temperature Temperature Source Pulse Rate 83 83 84 Pulse Rate [Left Radial] Pulse Rate from SpO2 Sensor 83 83 84 Pulse Rhythm [Left Radial] Pulse Strength [Left Radial] Respiratory Rate 17 19 20 Respiratory Effort / Characteristics Respiratory Depth Respiratory Pattern Blood Pressure 148/96 H Blood Pressure [Left Arm] Blood Pressure Mean 113 Blood Pressure Mean [Left Arm] Blood Pressure Position [Left Arm] Pulse Oximetry 97 97 97 Oxygen Delivery Method Sepsis Recent Fever Within 48 Hours Sepsis New/Unexplained Change in Mental Status Sepsis Action Taken by Custodial Medications Current Medication List: was personally reviewed by me Laboratory Data Attestation: I reviewed the patient's lab results. Result diagrams: 09/26/20 16:14 09/26/20 16:14 Lab Results 09/26/20 09/26/20 09/26/20 Range/Units 16:14 16:14 16:14 WBC 8.09 (4.8-10.8) K/uL RBC 4.25 (4.2-5.4) M/uL Hgb 13.2 (12.0-16.0) g/dL Hct 38.2 (37-47) % MCV 89.9 (80-100) fL MCH 31.1 (25-34) pg MCHC 34.6 (32-36) g/dL RDW Std Deviation 42.1 (36.4-46.3) fL RDW Coeff of Nathalie 12.9 (11.5-14.5) % Plt Count 271 (130-400) K/uL MPV 9.0 (7.4-10.4) fL Immature Gran % (Auto) 0.2 % Neut % (Auto) 55.2 % Lymph % (Auto) 37.1 % [place] % (Auto) 5.9 % Eos % (Auto) 1.4 % Baso % (Auto) 0.2 % Neut # (Auto) 4.46 (1.4-6.5) K/uL Lymph # (Auto) 3.00 (1.2-3.4) K/uL [place] # (Auto) 0.48 (0.11-0.59) K/uL Eos # (Auto) 0.11 (0-0.5) K/uL Baso # (Auto) 0.02 (0-0.2) K/uL Immature Gran # (Auto) 0.02 (0.00-0.02) K/uL PT 10.1 (9.0-12.0) Seconds INR 1.0 (0.9-1.1) APTT 24.3 (21.0-31.0) Seconds PTT Ratio 0.9 Sodium 135 L (136-145) mmol/L Potassium 3.5 (3.5-5.1) mmol/L Chloride 101 (98-107) mmol/L Carbon Dioxide 25 (21-32) mmol/L Anion Gap 9.0 (3-11) BUN 11 (7-18) mg/dl Creatinine 0.75 (0.6-1.2) mg/dl Est Cr Clr Drug Dosing 73.6 ml/min Est GFR ( Amer) 101.8 ml/min Est GFR (Non-Af Amer) 87.9 ml/min BUN/Creatinine Ratio 14.2 (10-20) Glucose 97 (70-99) mg/dl Calcium 9.1 (8.5-10.1) mg/dl Total Bilirubin 0.3 (0.2-1) mg/dl AST 19 (15-37) U/L ALT 21 (12-78) U/L Alkaline Phosphatase 63 (45-117) U/L Troponin I < 0.015 (0-0.045) ng/ml Total Protein 8.4 H (6.4-8.2) gm/dl Albumin 3.9 (3.4-5.0) gm/dl Globulin 4.5 H (2.5-4.0) gm/dl Albumin/Globulin Ratio 0.9 (0.9-2) Lipase 117 (73-393) U/L COVID-19 Eval Order SARS-CoV-2 (PCR) (Negative) 09/26/20 09/26/20 Range/Units 17:47 17:47 WBC (4.8-10.8) K/uL RBC (4.2-5.4) M/uL Hgb (12.0-16.0) g/dL Hct (37-47) % MCV (80-100) fL MCH (25-34) pg MCHC (32-36) g/dL RDW Std Deviation (36.4-46.3) fL RDW Coeff of Nathalie (11.5-14.5) % Plt Count (130-400) K/uL MPV (7.4-10.4) fL Immature Gran % (Auto) % Neut % (Auto) % Lymph % (Auto) % [place] % (Auto) % Eos % (Auto) % Baso % (Auto) % Neut # (Auto) (1.4-6.5) K/uL Lymph # (Auto) (1.2-3.4) K/uL [place] # (Auto) (0.11-0.59) K/uL Eos # (Auto) (0-0.5) K/uL Baso # (Auto) (0-0.2) K/uL Immature Gran # (Auto) (0.00-0.02) K/uL PT (9.0-12.0) Seconds INR (0.9-1.1) APTT (21.0-31.0) Seconds PTT Ratio Sodium (136-145) mmol/L Potassium (3.5-5.1) mmol/L Chloride (98-107) mmol/L Carbon Dioxide (21-32) mmol/L Anion Gap (3-11) BUN (7-18) mg/dl Creatinine (0.6-1.2) mg/dl Est Cr Clr Drug Dosing ml/min Est GFR ( Amer) ml/min Est GFR (Non-Af Amer) ml/min BUN/Creatinine Ratio (10-20) Glucose (70-99) mg/dl Calcium (8.5-10.1) mg/dl Total Bilirubin (0.2-1) mg/dl AST (15-37) U/L ALT (12-78) U/L Alkaline Phosphatase (45-117) U/L Troponin I (0-0.045) ng/ml Total Protein (6.4-8.2) gm/dl Albumin (3.4-5.0) gm/dl Globulin (2.5-4.0) gm/dl Albumin/Globulin Ratio (0.9-2) Lipase (73-393) U/L COVID-19 Eval Order Covid19 at [facility] SARS-CoV-2 (PCR) NEGATIVE (Negative) Administered Medications Discontinued Medications Acetaminophen (Acetaminophen 500 Mg Tab) 1,000 mg PO NOW STA Stop: 09/26/20 17:13 Last Admin: 09/26/20 17:29 Dose: 1,000 mg Documented by: [id number] Aspirin (Aspirin Chew 324 Mg) 324 mg PO NOW STA Stop: 09/26/20 17:13 Last Admin: 09/26/20 17:29 Dose: 324 mg Documented by: [id number] Lorazepam (Ativan) 1 mg in 2 mls @ 2 mls/min IV NOW STA Stop: 09/26/20 17:13 Last Admin: 09/26/20 17:32 Dose: 2 mls/min Documented by: [id number] Nitroglycerin (Nitroglycerin Sl 0.4 Mg/Tab Tab) 0.4 mg SL NOW STA Stop: 09/26/20 17:13 Last Admin: 09/26/20 17:38 Dose: 0.4 mg Documented by: [id number] Imaging Data Radiologist's Impression: Chest X-Ray 09/26/20 15:10 XR chest 1V portable CLINICAL HISTORY: Chest Pain COMPARISON STUDY: May 27, 2017 FINDINGS: No pneumothorax. No pleural effusion. No large infiltrates or consolidative lesions are seen. Cardiomediastinal silhouette is within normal limits in size. No significant pulmonary vascular congestion.. Osseous structures: unremarkable IMPRESSION: 1. No acute pulmonary process. ACT 112: Negative or not required by law. The above report was generated using voice recognition software. It may contain grammatical, syntax or spelling errors. Electronically signed by: Lise Lazaro DO 09/26/2020 4:57 PM Discharge Plan Visit Data Chief Complaint: Cardiac Assessment Stated Complaint: CHEST PAIN,TINGLING IN BOTH ARMS ED Provider: Gilles Louis Discharge Problem: Atypical chest pain, Alcohol abuse Forms Stand Alone Forms: [employer] Prescriptions Prescriptions: No Action levothyroxine 50 mcg Tablet 50 mcg PO QAM RF: 0 telmisartan 80 mg Tablet 40 mg PO BID RF: 0 montelukast 10 mg Tablet 10 mg PO QPM RF: 0 albuterol sulfate 90 mcg/actuation Hfa Aerosol Inhaler 1 - 2 puff INHALATION UD PRN (Reason: ASTHMA) RF: 0
[2020-09-26 16:32] LABS: Basophils # (auto) 0.02 K/uL (0-0.2); Basophils % (auto) 0.2 %; Eosinophils # (auto) 0.11 K/uL (0-0.5); Eosinophils % (auto) 1.4 %; Hematocrit (blood only) 38.2 % (37-47); Hemoglobin 13.2 g/dL (12.0-16.0); Immature Granulocytes # (auto) 0.02 K/uL (0.00-0.02); Immature Granulocytes % (auto) 0.2 %; Lymphocytes % (auto) 37.1 %; Mean Corpuscular Hemoglobin 31.1 pg (25-34); Mean Corpuscular Hgb Conc 34.6 g/dL (32-36); Mean Corpuscular Volume 89.9 fL (80-100); Monocytes # (auto) 0.48 K/uL (0.11-0.59); Monocytes % (auto) 5.9 %; Neutrophils # (auto) 4.46 K/uL (1.4-6.5); Neutrophils % (auto) 55.2 %; Platelet Count 271 K/uL (130-400); RDW Coefficient of Variation 12.9 % (11.5-14.5); RDW Standard Deviation 42.1 fL (36.4-46.3); Red Blood Count 4.25 M/uL (4.2-5.4); White Blood Count 8.09 K/uL (4.8-10.8)
[2020-09-26 16:44] LABS: Partial Thromboplastin Ratio 0.9; Partial Thromboplastin Time 24.3 Seconds (21.0-31.0); Prothrombin Time 10.1 Seconds (9.0-12.0)
[2020-09-26 16:48] LABS: Alanine Aminotransferase 21 U/L (12-78); Albumin Level 3.9 gm/dl (3.4-5.0); Aspartate Aminotransferase 19 U/L (15-37); BUN Creatinine Ratio 14.2 (10-20); Blood Urea Nitrogen 11 mg/dl (7-18); Calcium 9.1 mg/dl (8.5-10.1); Carbon Dioxide 25 mmol/L (21-32); Chloride 101 mmol/L (98-107); Creatinine Clr Calc Pharmacy 73.6 ml/min; Est GFR (African American) 101.8 ml/min; Est GFR (Non-African American) 87.9 ml/min; Glucose 97 mg/dl (70-99); Lipase 117 U/L (73-393); Potassium 3.5 mmol/L (3.5-5.1); Sodium 135 mmol/L (136-145)
[2020-09-26 16:53] LABS: Albumin Globulin Ratio 0.9 (0.9-2); Alkaline Phosphatase 63 U/L (45-117); Bilirubin,Total 0.3 mg/dl (0.2-1); Globulin 4.5 gm/dl (2.5-4.0); Total Protein 8.4 gm/dl (6.4-8.2); Troponin I < 0.015 ng/ml (0-0.045)
--- NOTE | 2020-09-26 16:58 | XRay Report ---
XR chest 1V portable CLINICAL HISTORY: Chest Pain COMPARISON STUDY: May 27, 2017 FINDINGS: No pneumothorax. No pleural effusion. No large infiltrates or consolidative lesions are seen. Cardiomediastinal silhouette is within normal limits in size. No significant pulmonary vascular congestion.. Osseous structures: unremarkable IMPRESSION: 1. No acute pulmonary process. ACT 112: Negative or not required by law. The above report was generated using voice recognition software. It may contain grammatical, syntax o r spelling errors. Electronically signed by: Lise Lazaro DO 09/26/2020 4:57 PM
[2020-09-26] MEDS ORDERED: ASPIRIN CHEW 324 MG PO STA (17:12)
[2020-09-26] MEDS ORDERED: NITROGLYCERIN SL 0.4 MG/TAB TAB SL STA (17:12)
[2020-09-26] MEDS ORDERED: ACETAMINOPHEN 500 MG TAB PO STA (17:12)
[2020-09-26] MEDS ORDERED: LORazepam 1 MG/2 ML VIAL IV STA (17:12)
--- NOTE | 2020-09-26 17:15 | Electrocardiogram Report ---
Test Reason : Blood Pressure : / mmHG Vent. Rate : 079 BPM Atrial Rate : 079 BPM P-R Int : 164 ms QRS Dur : 082 ms QT Int : 410 ms P-R-T Axes : 061 009 041 degrees QTc Int : 470 ms Poor data quality, interpretation may be adversely affected Normal sinus rhythm Abnormal ECG When compared with ECG of 26-SEP-2020 15:15, (unconfirmed) No significant change was found Confirmed by Dalton Sawyer ([id number]) on 09/26/2020 5:15:11 PM Referred By: Confirmed By:Luis Sawyer
--- NOTE | 2020-09-26 17:15 | Electrocardiogram Report ---
Test Reason : Blood Pressure : / mmHG Vent. Rate : 075 BPM Atrial Rate : 075 BPM P-R Int : 166 ms QRS Dur : 088 ms QT Int : 410 ms P-R-T Axes : 058 007 044 degrees QTc Int : 458 ms Normal sinus rhythm Low voltage QRS Abnormal ECG When compared with ECG of 02-MAR-2020 14:02, No significant change was found Confirmed by Dalton Sawyer ([id number]) on 09/26/2020 5:14:41 PM Referred By: Confirmed By:Luis Sawyer
--- NOTE | 2020-09-26 19:18 | History & Physical Report ---
Date of Service September 26, 2020 Assessment & Plan (1) Atypical chest pain: Risk factors: (+) family history grandparents/parents, HTN, DM, ETOH use, - ECG normal with no dynamic changes when compared to previous - Troponin I negative x1- next set at 2200; 0400 - Anxiety component with HTN - likely exacerbating component - NPO after MN stress ECHO in morning - Pain/pressure relieved following NTG? - now feels like "book opening" - NTP 1" q 6 - Protonix daily for GERD/ETOH component Cardiology consulted for interpretation of stress echo. Thank you Dr. Sawyer (2) Hypertension: Poorly controlled since admission - On single agent Telmisartan 40 mg BID - NTP 1" q6 - Metoprolol 25mg PO now- continue in morning - Decrease double product if symptoms persist or ECG changes - consider metoprolol or labetalol IV PRN (3) Prediabetes: HGB A1C in the morning - glucose checks ACHS- Notify provider if >180 - Hypoglycemic protocol ordered (4) Alcohol use: Intake varies on her daily activities - 3-6 beers most days of the week - Has gone days without drinking before- no withdraw symptoms, or hallucinations, or seizures. - No AAWS as of now (5) Asthma: Continue montelukast and albuterol PRN (6) Anxiety: Likely exacerbating symptoms as well - Ativan PO 0.5mg PRN (7) Hypothyroid: No acute needs, continue levothyroxine 50mcg PO daily. History of Present Illness Primary Care Provider: Eagle Bonilla MD 60 YOF with past medical history of: Hypothyroidism, HTN, Asthma, skin cancer. Patient comes to the emergency room today for complaints of chest pain/pressure. The patient got her shingles vaccine this weekend and felt "terrible" all weekend- with fatigue, body aches, headaches and neck pain. She felt better this morning, so she got up and drank 2 cups of "strong tea" this morning and felt energized. She then proceeded to clean her kitchen, scrub the cabinets, taking laundry up and down the stairs, all this without chest discomfort. When she stopped and was just moving around the house, she felt a pressure/pain in her center chest that may have involved her fingers. She went upstairs and laid on the bed, felt better. When she got back up the pain/pressure came back. She then took her BP and was >200, this was when the pressure/pain was followed with nausea, diaphoresis, neck pain and tingling in her fingers bilaterally. The pain/pressure was at worst 6/10. She was still having this discomfort in the emergency room and was given 1SL nitroglycerine following Ativan, aspirin and Tylenol. The patient feels that the NTG relieved the pain/pressure, but also the Ativan "has calmed me down allot". Patient is post-menopausal. Patient will be admitted for trending of cardiac enzymes and ECG, lipids and HGB A1C in morning, telemetry monitoring and will get a stress echo in the morning. Allergies Allergy/AdvReac Type Severity Reaction Status Date / Time bee venom protein (honey bee) Allergy Severe anaphylaxis Verified 09/26/20 17:18 fluconazole Allergy Intermediate Hives Verified 09/26/20 17:18 latex Allergy Intermediate rash/SWELLI Verified 09/26/20 17:18 NG nonoxynol 9 Allergy Intermediate SWELLING, Verified 09/26/20 17:18 ITCHING AND DISCOMFORT Sulfa (Sulfonamide Allergy Intermediate hives Verified 09/26/20 17:18 Antibiotics) egg AdvReac Intermediate UNDERCOOKED Verified 09/26/20 17:18 EGGS - DIARRHEA lisinopril AdvReac Intermediate cough Verified 09/26/20 17:18 pneumococcal vaccine AdvReac Intermediate Body Verified 09/26/20 17:18 aches, LEGS DIDN'T WORK WINE AdvReac Intermediate WHEN DRINK Uncoded 09/26/20 17:18 WINE SPINE HURTS FROM TOP TO BOTTOM Home Medications Medication Instructions Recorded Confirmed Type albuterol sulfate 1 - 2 puff INHALATION UD PRN 03/07/20 09/26/20 History levothyroxine 50 mcg PO QAM 03/07/20 09/26/20 History montelukast 10 mg PO QPM 03/07/20 09/26/20 History telmisartan 40 mg PO BID 03/07/20 09/26/20 History pantoprazole 40 mg PO DAILY 28 Days #28 tab 09/27/20 Rx Past Med/Surg History Medical History Anxiety Asthma Dry cough D/T EMPLOYMENT EXPOSURES PER PT - DENIES CHANGE IN QUALITY AND DENIES ANY OTEHR ILLNESS SYMPTOMS Frequent UTI HX OF - MOST RECENT FEW YRS AGO History of skin cancer HX PRE CANCER ON NOSE / REMOVED Hypertension Hypothyroid Prediabetes Surgical History H/O colonoscopy H/O dilation and curettage 2020, pmb, polyp H/O hand surgery H/O oral surgery S/P appendectomy HX Family History (Updated 09/26/20 @ 19:58 by SANJAY Ruiz) Sister Breast cancer Mother Hypertension Heart disease Stroke Father Dyslipidemia Hypertension Heart disease Brother Multiple sclerosis Other Family history of diabetes mellitus Ovarian cancer Denies family history of Colorectal cancer Social History Smoking Status: Never smoker Hx Alcohol Use: Yes Alcohol type: beer Hx Substance Use: Yes Last Used Substance: Days (ago) Substance Use Type Other:: 1 HIT EVERY EVENING PT REPORTS MARIJUANA USE ONLY(ADVISED) - DENIES OTHERS Preferred Language: Kazakh Communication Ability: Effective Auto Hiker Required: No Beliefs That Will Affect Care: None Current Living Situation: Spouse Feels Safe at Home: Yes Assistive Devices: Glasses Review of Systems Review of Systems: REVIEW OF SYSTEMS: Constitutional: No fever, sweats or chills Eyes: No diplopia, no worsening or blurred vision ENT: normal hearing, no trouble swallowing Respiratory: No cough, sputum, dyspnea at rest or on exertion Cardiovascular: (+) chest pain, tightness or palpitations Abdomen: (+) nausea, No pain, nausea, vomiting, diarrhea or constipation Musculoskeletal: No joint pain, calf pain, swelling Neurologic: No weakness, numbness/tingling, or balance problems Psychiatric: (+) anxiety, No depression Skin: No rash or itch Physical Exam Physical Exam: PHYSICAL EXAM: General: awake, alert, no apparent distress Head: Normocephalic, atraumatic ENT: PERRL, EOMI, no pharyngeal exudate, mucous membranes moist Neuro: AAO x 3, speech clear and appropriate, strength intact bilaterally 5/5, sensation intact and equal all extremities and dermatomes, no pronator drift Chest: equal rise and fall of the chest, no accessory muscle use, no heaves or thrills, Clear to auscultation, on room air, Cardiac: Regular rate and rhythm, telemetry reviewed NSR, skin warm dry, cap refill <3 seconds, peripheral pulses +2 no JVD, no murmur, no edema GI: NABS x 4 quadrants, soft, nontender to palpation, no rebound, guarding or tenderness : Spontaneously voiding, no pain, no CVA tenderness, Extremities: Normal inspection, no peripheral edema or erythema, calfs nontender to palpation MSK: pain reproducible to left paraspinal and supraspinatus that travels to her neck, no reproducible pain to chest wall or shoulder rotation Psych: Normal mood and affect Skin: no rash or erythema Results & Data Results & Data ([facility]) Vital Signs (Past 12 Hours) Vital Signs Temp Pulse Pulse Resp BP BP Pulse Ox 09/26/20 18:31 84 20 97 09/26/20 18:30 83 19 148/96 H 97 09/26/20 18:02 83 17 97 09/26/20 18:01 80 19 142/91 H 98 09/26/20 18:00 78 18 98 09/26/20 17:30 77 20 163/117 H 100 09/26/20 17:00 73 17 191/119 H 99 09/26/20 16:30 66 18 180/105 H 99 09/26/20 16:27 73 22 187/112 H 100 09/26/20 16:18 73 19 99 09/26/20 16:16 80 22 187/112 H 100 09/26/20 15:07 36.7 C 76 20 177/95 H 99 Laboratory Results Abnormal lab results 09/26/20 Range/Units 16:14 Sodium 135 L (136-145) mmol/L Total Protein 8.4 H (6.4-8.2) gm/dl Globulin 4.5 H (2.5-4.0) gm/dl Diagnostic Findings Chest X-Ray 09/26/20 15:10 XR chest 1V portable CLINICAL HISTORY: Chest Pain COMPARISON STUDY: May 27, 2017 FINDINGS: No pneumothorax. No pleural effusion. No large infiltrates or consolidative lesions are seen. Cardiomediastinal silhouette is within normal limits in size. No significant pulmonary vascular congestion.. Osseous structures: unremarkable IMPRESSION: 1. No acute pulmonary process. Electronically signed by: Lise Lazaro DO 09/26/2020 4:57 PM Medications Administered Discontinued Medications Acetaminophen (Acetaminophen 500 Mg Tab) 1,000 mg PO NOW STA Stop: 09/26/20 17:13 Last Admin: 09/26/20 17:29 Dose: 1,000 mg Documented by: [id number] Aspirin (Aspirin Chew 324 Mg) 324 mg PO NOW STA Stop: 09/26/20 17:13 Last Admin: 09/26/20 17:29 Dose: 324 mg Documented by: [id number] Lorazepam (Ativan) 1 mg in 2 mls @ 2 mls/min IV NOW STA Stop: 09/26/20 17:13 Last Admin: 09/26/20 17:32 Dose: 2 mls/min Documented by: [id number] Nitroglycerin (Nitroglycerin Sl 0.4 Mg/Tab Tab) 0.4 mg SL NOW STA Stop: 09/26/20 17:13 Last Admin: 09/26/20 17:38 Dose: 0.4 mg Documented by: [id number] ECG Additional Comments: Vent. Rate : 079 BPM Atrial Rate : 079 BPM P-R Int : 164 ms QRS Dur : 082 ms QT Int : 410 ms P-R-T Axes : 061 009 041 degrees QTc Int : 470 ms Normal sinus rhythm Abnormal ECG When compared with ECG of 26-SEP-2020 15:15, (unconfirmed) No significant change was found Code Status & VTE Plan Code Status CODE: FULL VTE: SCD's, Lovenox 40mg Sub q q24 VTE Prophylaxis Plan VTE Prophylaxis will be ordered: Yes Supervising Physician Co-Signing Physician Notes Attending Attestation and Admission note: Pt seen/examined, chart reviewed, care plan d/w SANJAY Hughes. I agree w/ the newton components of his documentation. 60yo female with h/o hypothyroidism, etoh use, HTN, pre-DM, hyperlipidemia - presents with chest pain that resolved with use of nitroglycerin. [place] poorly last few days after receiving the shingles vaccine. Those sx's resolved this am. 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 Admitted that she drank 2 large cups of caffeinated tea about 30 min before chest pain began. PMH, PSH, allergies, meds, sochx, famhx - reviewed BPs elevated gen - NAD neck - no JVD heart - RRR, s1 s2, no murmur lungs - CTA b/l chest - no reproducible chest wall pain to palpation abd - soft, NT, ND, BS+ ext - no edema labs reviewed EKG - NSR, no ST changes imaging reviewed A/P: Chest pain - resolved with nitro. Multiple CAD risk factors. However, trop neg thus far, and EKG stable and without ischemic changes. [id number] - obtain serial trops, place on tele, and plan for stress echo in am. If cardiac w/u is negative - this could have been upper GI in origin (esophageal) given the response to nitro. Musculoskeletal is possible as the pain started after she had been doing many demographer. Also, she had been sore in her muscles following her recent shingles vaccine. No PE risk factors. HTN -- BPs elevated, and on telmisartan 40 BID. If Bps remain high adjust meds. Lele Monk MD PG Care Time/CCT Total # of Minutes Spent Total Time Spent with Patient: Total time spent is greater than 50% in coordination of care (as documented) at patient's floor/unit and/or counseling patient: Coding Level of Care Code 00333 Initial Inpt Care Lvl 3 Diagnoses Atypical chest pain R07.89 Hypertension I10 Hypertension type: essential hypertension Prediabetes R73.03 Alcohol use Z72.89 Asthma J45.909 Asthma complication type: unspecified Asthma persistence: unspecified Asthma severity: unspecified severity Anxiety F41.9 Hypothyroid E03.9 Hypothyroidism type: unspecified (1) Hypothyroid Hypothyroidism type: unspecified Qualified Code(s): E03.9 - Hypothyroidism, unspecified (2) Hypertension Hypertension type: essential hypertension Qualified Code(s): I10 - Essential (primary) hypertension (3) Asthma Asthma complication type: unspecified Asthma persistence: unspecified Asthma severity: unspecified severity Qualified Code(s): J45.909 - Unspecified asthma, uncomplicated
[2020-09-26] MEDS ORDERED: NITROGLYCERIN 2% OINTMENT 30GM TUBE EXT STA (19:42)
[2020-09-26] MEDS ORDERED: METOPROLOL TARTRATE 25 MG TAB PO STA (20:36)
[2020-09-26] MEDS ORDERED: CARBOHYDRATES FOR HYPOGLYCEMIA PO PRN (22:29)
[2020-09-26] MEDS ORDERED: GLUCAGON FOR INJ 1 MG VIAL SQ PRN (22:29)
[2020-09-26] MEDS ORDERED: MONTELUKAST SODIUM 10 MG TABLET PO SCH (22:29)
[2020-09-26] MEDS ORDERED: ONDANSETRON INJ 2 MG/ML 2 ML VIAL IV PRN (22:29)
[2020-09-26] MEDS ORDERED: GLUCOSE 10 TABS/TUBE PO PRN (22:29)
[2020-09-26] MEDS ORDERED: ACETAMINOPHEN 325 MG TAB PO PRN (22:29)
[2020-09-26] MEDS ORDERED: DEXTROSE 50% 50 ML SYRINGE IV PRN (22:29)
[2020-09-26] MEDS ORDERED: GLUCOSE 40% GEL 15 GM TUBE PO PRN (22:29)
[2020-09-26] MEDS ORDERED: LORazepam 0.5 MG TAB PO PRN (22:29)
[2020-09-27] MEDS: TELMISARTAN 40 MG TAB PO SCH ×2 (00:11→08:24)
[2020-09-27] MEDS: NITROGLYCERIN 2% OINTMENT 30GM TUBE EXT SCH ×2 (02:03→08:24)
[2020-09-27 05:42] LABS: Basophils # (auto) 0.02 K/uL (0-0.2); Basophils % (auto) 0.3 %; Eosinophils # (auto) 0.15 K/uL (0-0.5); Eosinophils % (auto) 2.6 %; Hematocrit (blood only) 36.1 % (37-47); Hemoglobin 11.9 g/dL (12.0-16.0); Immature Granulocytes # (auto) 0.02 K/uL (0.00-0.02); Immature Granulocytes % (auto) 0.3 %; Lymphocytes # (auto) 2.47 K/uL (1.2-3.4); Lymphocytes % (auto) 42.2 %; Mean Corpuscular Volume 90.9 fL (80-100); Mean Platelet Volume 9.1 fL (7.4-10.4); Monocytes # (auto) 0.55 K/uL (0.11-0.59); Monocytes % (auto) 9.4 %; Neutrophils # (auto) 2.65 K/uL (1.4-6.5); Neutrophils % (auto) 45.2 %; Platelet Count 258 K/uL (130-400); RDW Coefficient of Variation 12.9 % (11.5-14.5); RDW Standard Deviation 43.2 fL (36.4-46.3); Red Blood Count 3.97 M/uL (4.2-5.4); White Blood Count 5.86 K/uL (4.8-10.8)
[2020-09-27 06:11] LABS: BUN Creatinine Ratio 16.2 (10-20); Blood Urea Nitrogen 12 mg/dl (7-18); Calcium 8.8 mg/dl (8.5-10.1); Carbon Dioxide 27 mmol/L (21-32); Chloride 106 mmol/L (98-107); Creatinine Clr Calc Pharmacy 74.6 ml/min; Est GFR (African American) 103.5 ml/min; Est GFR (Non-African American) 89.3 ml/min; Glucose 94 mg/dl (70-99); Magnesium 1.9 mg/dl (1.8-2.4); Potassium 4.1 mmol/L (3.5-5.1); Sodium 138 mmol/L (136-145)
[2020-09-27 06:18] LABS: Chol HDL Ratio 4; Cholesterol 229 mg/dl (0-200); HDL Cholesterol 65 mg/dl; LDL Cholesterol Calculated 143 mg/dl; Triglycerides 104 mg/dl (0-150); Troponin I < 0.015 ng/ml (0-0.045); VLDL Cholesterol 21 mg/dl
[2020-09-27] MEDS ORDERED: LEVOTHYROXINE SODIUM 50 MCG TABLET PO SCH (06:30)
[2020-09-27 07:13] LABS: Estimated Average Glucose 108 mg/dl; Hemoglobin A1C 5.4 % (4.5-5.6)
[2020-09-27] MEDS ORDERED: PANTOprazole 40 MG TAB PO SCH (09:00)
[2020-09-27] MEDS ORDERED: ENOXAPARIN INJ 40 MG/0.4 ML SYR SQ SCH (09:00)
--- NOTE | 2020-09-27 11:18 | XCELERA ---
[id number] [id number]
--- NOTE | 2020-09-27 12:11 | Electrocardiogram Report ---
Test Reason : Blood Pressure : / mmHG Vent. Rate : 061 BPM Atrial Rate : 061 BPM P-R Int : 196 ms QRS Dur : 086 ms QT Int : 480 ms P-R-T Axes : 057 007 031 degrees QTc Int : 484 ms Normal sinus rhythm Low voltage QRS Prolonged QT Abnormal ECG When compared with ECG of 26-SEP-2020 15:54, No significant change was found Confirmed by Dalton Sawyer ([id number]) on 09/27/2020 12:11:32 PM Referred By: REFERRED SELF Confirmed By:Luis Sawyer
--- NOTE | 2020-09-27 18:00 | Discharge Summary ---
Date of Service September 27, 2020 Admission HPI Per Admitting Provider 60 YOF with past medical history of: Hypothyroidism, HTN, Asthma, skin cancer. Patient comes to the emergency room today for complaints of chest pain/pressure. The patient got her shingles vaccine this weekend and felt "terrible" all weekend- with fatigue, body aches, headaches and neck pain. She felt better this morning, so she got up and drank 2 cups of "strong tea" this morning and felt energized. She then proceeded to clean her kitchen, scrub the cabinets, taking laundry up and down the stairs, all this without chest discomfort. When she stopped and was just moving around the house, she felt a pressure/pain in her center chest that may have involved her fingers. She went upstairs and laid on the bed, felt better. When she got back up the pain/pressure came back. She then took her BP and was >200, this was when the pressure/pain was followed with nausea, diaphoresis, neck pain and tingling in her fingers bilaterally. The pain/pressure was at worst 6/10. She was still having this discomfort in the emergency room and was given 1SL nitroglycerine following Ativan, aspirin and Tylenol. The patient feels that the NTG relieved the pain/pressure, but also the Ativan "has calmed me down allot". Patient is post-menopausal. Patient will be admitted for trending of cardiac enzymes and ECG, lipids and HGB A1C in morning, telemetry monitoring and will get a stress echo in the morning. Principal Diagnosis Chest pain -> Likely GERD/gastritis vs. MSK Discharge Exam Constitutional WD/WN, vitals as above Eyes EOM intact bilaterally; no conjunctival abnormality ENMT external ear and nose normal, oropharynx normal Neck trachea midline, no thyromegaly normal visual inspection Respiratory normal respiratory effort, lungs clear to auscultation no respiratory distress Cardiovascular RRR, no murmur, no edema Gastrointestinal (Abdomen) Inspection/Auscultation: abdomen normal to inspection; abdomen not distended Musculoskeletal no cyanosis or clubbing, extremities motor strength 5/5 Skin no rashes, warm and dry Neurologic moves all extremities and awake Psychiatric Orientation: alert, oriented to person and cooperative Discharge Data Allergies Allergy/AdvReac Type Severity Reaction Status Date / Time bee venom protein (honey bee) Allergy Severe anaphylaxis Verified 09/26/20 17:18 fluconazole Allergy Intermediate Hives Verified 09/26/20 17:18 latex Allergy Intermediate rash/SWELLI Verified 09/26/20 17:18 NG nonoxynol 9 Allergy Intermediate SWELLING, Verified 09/26/20 17:18 ITCHING AND DISCOMFORT Sulfa (Sulfonamide Allergy Intermediate hives Verified 09/26/20 17:18 Antibiotics) egg AdvReac Intermediate UNDERCOOKED Verified 09/26/20 17:18 EGGS - DIARRHEA lisinopril AdvReac Intermediate cough Verified 09/26/20 17:18 pneumococcal vaccine AdvReac Intermediate Body Verified 09/26/20 17:18 aches, LEGS DIDN'T WORK WINE AdvReac Intermediate WHEN DRINK Uncoded 09/26/20 17:18 WINE SPINE HURTS FROM TOP TO BOTTOM Consultations 09/26/20 18:27 ED Decision to Admit Stat Hospital Course (1) Atypical chest pain: Risk factors: (+) family history grandparents/parents, HTN, DM, ETOH use, - ECG normal with no dynamic changes when compared to previous - Troponins negative. - Stress echo was negative. - Likely gastritis/esophagitis as she drinks 4 beers every day. We discussed reasonable alcohol use for women (limit to 7/wk and max 1-2/day). She will work on this and feels that as the pandemic ends, it will be easier to stick to these limits as the rest of her life resumes. - For MSK pain, we discussed adding a light aerobic exercise plan and stretching/yoga to help reduce this kind of pain. - Will follow up with PCP. (2) Hypertension: Poorly controlled since admission. - On single agent Telmisartan 40 mg BID - Follow up with PCP. (3) Prediabetes: HGB A1C was 5.4% this admission. (4) Alcohol use: Intake varies on her daily activities - 3-6 beers most days of the week - As above (5) Asthma: Continue montelukast and albuterol PRN (6) Anxiety: Likely exacerbating symptoms as well - Ativan PO 0.5mg PRN (7) Hypothyroid: No acute needs, continue levothyroxine 50mcg PO daily. Total Time Total Time Spent Total Time Spent (In Minutes): 35 Discharge Plan Discharge Items Patient Disposition: Home - Self-Care Reason For Visit: Chest Pain Discharge Diagnosis: Chest pain -> Likely musculoskeletal or gastric related Activity: Resume your previous activity Non-emergency contact: Primary Care Provider Call non-emergency contact if: your symptoms worsen Follow-up/Referrals: Eagle Bonilla MD [Primary Care Provider] - 09/29/20 9:50 am (This will be at the [facility] office. Please take your hospital discharge paperwork with you to your appointment.) Diet: Regular Addtl Attending Provider Instructions: Ms. Chavez, You were admitted with chest pain. We checked lab work called troponin which indicates you *did not* have a heart attack. Your stress test was also great which is awesome! We are giving your heart a clean bill of health. The pain you experienced may have been from muscles/bones or possibly from the stomach. As we discussed, please start a light aerobic work-up and stretching daily, including 20 minutes of aerobic activity (walking, elliptical, etc) that raises your heart rate to 110 - 120 beats per minute. You can work up from that. Light stretching or yoga can also be beneficial. For your stomach, the most important thing to do is lower your alcohol consumption. For women, the recommendation is 7 total drinks per week (a drink would be a 12 oz. beer of regular ABV (5.5 - 6%.) The maximum in one day is recommended at 2 drinks. We are also starting you on an acid blocking medication called Protonix or pantoprazole. Please take this daily for the next two to four weeks. Please see Dr. Bonilla in the office sometime this week or next to be sure you are feeling well. Pending Studies at Discharge: No Stand-Alone Forms: My [facility], Smoking Cessation Medications and DC Order Prescriptions: New pantoprazole 40 mg tablet,delayed release (DR/EC) 40 mg PO DAILY 28 Days Qty: 28 RF: 0 Continued levothyroxine 50 mcg Tablet 50 mcg PO QAM RF: 0 telmisartan 80 mg Tablet 40 mg PO BID RF: 0 montelukast 10 mg Tablet 10 mg PO QPM RF: 0 albuterol sulfate 90 mcg/actuation Hfa Aerosol Inhaler 1 - 2 puff INHALATION UD PRN (Reason: ASTHMA) RF: 0 Discharge Orders: Discharge Order (Routine); Ordered 09/27/20 Ordered By: Jose Griffin Admission Data Admit Date/Time: 09/26/20 20:02 Attending Provider: Jose Griffin Admit Provider: Lele Monk Primary Care Provider: Eagle Bonilla Other Providers: Jose Griffin Other Interventions: Discharge Summary Assessment (RN) Last Done: 09/27/20 12:41 Coding Level of Care Code D/C Day Management >30 mins Diagnoses Atypical chest pain R07.89 Hypertension I10 Hypertension type: essential hypertension Prediabetes R73.03 Alcohol use Z72.89 Asthma J45.909 Asthma severity: unspecified severity Asthma persistence: unspecified Asthma complication type: unspecified Anxiety F41.9 Hypothyroid E03.9 Hypothyroidism type: unspecified
== END 2020-09-27 13:20 | disposition home or self-care (01) | DRG 392 ==
LOC: ED 15:02 → SUATTDRO 20:02 → 2N 20:02